=== PATIENT | female | born 1985 | race Caucasian/White ===

== ENCOUNTER → 2017-03-21 20:57 | Emergency (ER) | END | disposition left against medical advice (07) ==

== ENCOUNTER 2018-06-13 20:52 | Emergency (ER) | payer OTHER ==
[~2018-06-13] VITALS: Ht 152.4 cm; Wt 81.7 kg
[2018-06-13 21:05] VITALS: Ht 152.4 cm; Wt 81.7 kg
--- NOTE | 2018-06-13 23:35 | ERD ---
ER Documentation Chief Complaint Chief Complaint COLD SYMPTOMS - COUGH, RAMIREZ, VOMITING HPI 32-year-old female, at 17 weeks , presents the emergency department, complaining of 3 days with upper respiratory symptoms including cough, runny nose, headache and general malaise. No medications taken at this t jonn. She denies abdominal pain, no vaginal bleeding, no vaginal leakage. The patient has established care with Dr.Tanaz Castro ROS All systems reviewed and are negative except as per history of present illness. Medications Home Meds Active Scripts Acetaminophen* (Tylenol*) 325 Mg Tablet, 2 TAB PO Q8 PRN for PAIN AND OR ELEVATED TEMP, #20 TAB Prov:CHARLINE TUCKER MD 06/14/18 Cephalexin* (Keflex*) 500 Mg Capsule, 500 MG PO TID for 7 Days, CAP Prov:CHARLINE TUCKER MD 06/14/18 Allergies Allergies: Coded Allergies: No Known Allergy (Unverified , 03/22/17) Physical Exam Vitals Vital Signs Date Temp Pulse Resp B/P (MAP) Pulse Ox O2 O2 Flow FiO2 Time Delivery Rate 06/13/18 98.4 86 18 135/75 99 21:05 (95) Physical Exam Const: No acute distress Head: Atraumatic Eyes: Normal Conjunctiva ENT: Normal External Ears, Nose and Mouth. Neck: Full range of motion. No meningismus. Resp: Clear to auscultation bilaterally Cardio: Regular rate and rhythm, no murmurs Abd: Soft, non tender, non distended. Normal bowel sounds Skin: No petechiae or rashes Back: No midline or flank tenderness Ext: No cyanosis, or edema Neur: Awake and alert Psych: Normal Mood and Affect Results 24 hrs Laboratory Tests Test 06/13/18 23:55 Urine Color YELLOW Urine Clarity CLOUDY Urine pH 6.0 Urine Specific [place] 1.011 Urine Ketones NEGATIVE mg/dL Urine Nitrite NEGATIVE mg/dL Urine Bilirubin NEGATIVE mg/dL Urine Urobilinogen NEGATIVE mg/dL Urine Leukocyte Esterase 3+ Al/ul Urine Microscopic RBC 18 /HPF Urine Microscopic WBC 119 /HPF Urine Squamous Epithelial Cells MODERATE /HPF Urine Bacteria MANY /HPF Urine Mucus FEW /HPF Urine Hemoglobin NEGATIVE mg/dL Urine Glucose NEGATIVE mg/dL Urine Total Protein NEGATIVE mg/dl Current Medications Medications Dose Sig/Lindsey Start Time Status Last (Trade) Ordered Route PRN Stop Time Admin Dose Reason Admin Ceftriaxone 50 ml @ ONCE ONCE 06/14/18 DC Sodium 100 mls/hr IVPB 00:30 06/14/18 00:59 Ceftriaxone 1 gm ONCE ONCE 06/14/18 DC 06/14/18 Sodium IM 01:00 01:01 (Rocephin) 06/14/18 01:01 Lidocaine 5 ml ONCE ONCE 06/14/18 DC 06/14/18 (Xylocaine INFIL 01:00 01:01 1% (Mpf)) 06/14/18 01:01 Procedures/MDM Differential diagnosis include but not limited to: UTI, colitis, gastroenteritis, kidney stones, irritable bowel syndrome, inflammatory bowel syndrome, malabsorption syndrome, cholelithiasis, food intolerance, medication side effect, pancreatitis, diverticulitis, bowel obstruction. Low suspicion for acute abdomen Physical examination and clinical presentation consistent most likely with u rinary tract infection. During the ED course the patient remained stable, no new complaints. The patient received treatment with Rocephin IM presenting overall improvement of the symptoms. Results and clinical impression discussed with patient who agrees with management. The patient is stable to be treated outpatient and will be discharged home, some side effects of prescribed medications (headache, rash, nausea, vomiting, diarrhea, drowsiness, habituation, bleeding, hypertension, interactions with other medications) were reviewed. The patient was instructed to follow up with the primary care provider in the next 48h. If symptoms persist, worsen or new symptoms develop, then patient should return to the ED immediately. Instructions explained and given directly by me to the patient with acknowledgment and demonstrated understanding. Disclaimer: Inadvertent spelling and grammatical errors are likely due to EHR/dictation software use and do not reflect on the overall quality of patient care. Also, please note that the electronic time recorded on this note does not necessarily reflect the actual time of the patient encounter. Departure Diagnosis: Primary Impression: UTI (urinary tract infection) Condition: Stable Additional Instructions: Thank you very much for allowing us to participate in your care. Your health and safety is our top priority at [facility]. Call your primary care doctor TOMORROW for an appointment during the next 2-4 days and bring all the information and medications prescribed. Have prescriptions filled and follow precisely the directions on the label. If the symptoms get worse and your provider is unavailable, return to the Emergency Department immediately. CHARLINE TUCKER MD Jun 13, 2018 23:35
[2018-06-14] MEDS ORDERED: CEFTRIAXONE 1 GM/50 ML (PMX) 50 ML IVPB ONE (00:30)
[2018-06-14] MEDS ORDERED: LIDOCAINE 1% (MPF) 5 ML VIAL INFIL ONE (01:00)
[2018-06-14] MEDS ORDERED: CEFTRIAXONE 1 GM INJ IM ONE (01:00)
[2018-06-14] MEDS ORDERED: CEPH-443 PO (01:18)
[2018-06-14] MEDS ORDERED: ACET325T33 PO (01:18)
[2018-06-14 01:27] VITALS: BP 128/61; PULSE 77; RESP 18
== END 2018-06-14 01:31 | disposition home or self-care (01) ==
LOC: FTE 20:52
DX: O23.42 Unspecified infection of urinary tract in pregnancy, second trimester (principal); Z3A.17 17 weeks gestation of pregnancy
CPT/HCPCS: 81001; 87086; 87400; 96372; J0696; Z7502; Z7610